=== PATIENT | female | born 1945 | race Caucasian/White ===

== ENCOUNTER 2016-10-24 07:23 | Day surgery (SDC) | payer MEDICARE, MEDICAID ==
[~2016-10-24] VITALS: Ht 157.5 cm; Wt 73.0 kg
[~2016-10-24 07:23] MED LIST: BUSPAR 10MG TAB10 MG PO; DOXAZOSIN 4MG TA4 MG PO; HYDRALAZINE HCL25 M1 PO; LISINOPRIL40 MG PO; OMEPRAZOLE40 MG PO; REGLAN 5MG TABLE5 MG PO; VITAMIN D50000 I1 PO
--- NOTE | 2016-10-24 11:05 | Anesthesia Record ---
Anesthesia Record Part II Discharge time: 1052 Destination: HOME PACU nurse assessment review? Yes Patient is: Awake, Stable Anesthesia complications? No at 1104
--- NOTE | 2016-10-24 11:05 | Anesthesia Record ---
Anesthesia Record Part I Total IV fluids: 300 EBL (ml): 0 Urine Output: 0 (NOT MEASURED) B/P: 126/57 % SaO2: 96 Pulse: 78 Resps: 16 Temp: 97.5 Patient is: Awake, Stable Stable to PACU at: 1022 (SDS) at 1104
[2016-10-24 14:53] VITALS: BP 136/67
--- NOTE | 2016-10-24 15:54 | Operative Note-Urology ---
Procedure/Operative Record Procedure DATE OF PROCEDURE: 10/24/16 PREOPERATIVE DIAGNOSIS: Chronic cystitis POSTOPERATIVE DIAGNOSIS: Chronic cystitis with urethral stenosis PROCEDURE PERFORMED: Cystoscopy with urethral dilation SURGEON: Marcelino Palacios ANESTHESIA: Local Mac BRIEF HISTORY: Patient is 71 years of age. She has history of chronic dysuria. Years ago she responded with urethral dilation. 3 months ago she had cystoscopy and urethral dilation. That improved her symptoms slightly but did not completely resolve. She presents today for repeat cystoscopy and urethral dilation OPERATIVE NOTE: After satisfactory to the patient she was carefully placed in the dorsal lithotomy position. The genital area was prepped and draped in standard fashion. A 22 [place] cystoscope sheath was introduced. Her urethra was snug around the scope. Bladder was inspected entirely both 30 and 70 degree lenses. 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 Ureteral procedures eventuated in normal position. Reflux clear urine. No evidence of cystocele clinically. EBL (ml): 0 IMPRESSION: Chronic cystitis with urethral stenosis PLAN: She is placed on Bactrim and Valtrex twice a day for 2 weeks. She'll follow me in 1 month. at [id number]
== END 2016-10-24 11:18 | disposition home or self-care (01) ==
LOC: SDC 07:23
PROVIDERS: Urology
PROC: 0T7D8ZZ Dilation of Urethra, Via Natural or Artificial Opening Endoscopic (ICD-10-PCS; principal; 2016-10-24 09:15)
DX: N30.20 Other chronic cystitis without hematuria (principal); N35.9 Urethral stricture, unspecified; E11.8 Type 2 diabetes mellitus with unspecified complications

== ENCOUNTER → 2017-05-04 | Outpatient (CLI) | payer MEDICARE, MEDICAID ==
--- NOTE | 2017-05-04 15:56 | RADIOLOGY REPORT PS360 ---
US [id number] HISTORY: RENAL INSUFFICIENCY ORDERING PHYSICIAN: Marcelino Palacios MD PATIENT AGE: 71 years COMPARISON: None FINDINGS: RIGHT KIDNEY:The right kidney measures 9 x 4 x 5 cm. There is mild cortical thinning. No hydronephrosis or renal mass. LEFT KIDNEY:Left kidney measures 9.3 x 4 x 4 cm with mild cortical thinning. No hydronephrosis or mass. OTHER FINDINGS: No other pertinent findings IMPRESSION: Mild cortical thinning otherwise negative bilateral renal ultrasound
== END ==
LOC: RAD 13:59
DX: N28.9 Disorder of kidney and ureter, unspecified (principal)